=== PATIENT | male | born 1995 ===

== ENCOUNTER 2020-05-17 13:42 | Emergency (ER) | payer SELFPAY ==
[2020-05-17 13:50] VITALS: BP 130/87
--- NOTE | 2020-05-17 14:20 | ER Document Report ---
ED Medical Screen (RME) - General Chief Complaint: Abdominal Pain Stated Complaint: RIGHT SIDE/ABDOMINAL PAIN Time Seen by Provider: 05/17/20 14:16 Mode of Arrival: Ambulatory Information source: Patient Notes: 25-year-old male presented ED for complaint of right upper abdominal pain. He states he has had hep C since he was 16 but is never gotten treatment. He states he has been in and out of halfway since he was 17. He has never had treatment for his hep C. He states the pain has been getting worse and worse so he is come to the emergency room. He states he smokes a pack a day drinks maybe once every month or 2 [address]. He states at one point he was prescribed Percocet but now he gets them off the street. He denies any nausea vomiting or diarrhea. He denies any fevers. He states the pain is pretty severe. We will get blood urine and ultrasound and he will be seen by another provider. I have greeted and performed a rapid initial assessment of this patient. A comprehensive ED assessment and evaluation of the patient, analysis of test results and completion of medical decision making process will be conducted by an additional ED providers. Physical Exam - Vital signs Vitals: Temp Pulse Resp BP Pulse Ox 98.8 F 86 16 130/87 H 100 05/17/20 13:46 05/17/20 13:46 05/17/20 13:46 05/17/20 13:46 05/17/20 13:46 Course - Vital Signs Vital signs: Temp Pulse Resp BP Pulse Ox 98.8 F 86 16 130/87 H 100 05/17/20 13:46 05/17/20 13:46 05/17/20 13:46 05/17/20 13:46 05/17/20 13:46
--- NOTE | 2020-05-17 15:11 | RADIOLOGY REPORT (SQ) ---
EXAM DESCRIPTION: U/S ABDOMEN LIMITED W/O DOP IMAGES COMPLETED DATE/TIME: 05/17/2020 2:54 pm REASON FOR STUDY: Upper quadrant abdominal pain history of hep C COMPARISON: None. TECHNIQUE: Dynamic and static grayscale images acquired of the abdomen and recorded on PACS. Additio nal selected color Doppler and spectral images recorded. LIMITATIONS: None. FINDINGS: PANCREAS: No masses. Visualized pancreatic duct normal caliber. LIVER: No masses. Echotexture normal. LIVER VASCULATURE: Normal directional flow of the main portal vein and hepatic veins. GALLBLADDER: No stones. Normal wall thickness. No pericholecystic fluid. ULTRASOUND-DETECTED ORDOÑEZ'S SIGN: Negative. INTRAHEPATIC DUCTS AND COMMON DUCT: CBD and intrahepatic ducts normal caliber. No filling defects. AORTA: No aneurysm. RIGHT KIDNEY: Normal size. Normal echogenicity. No solid or suspicious masses. No hydronephrosis. No calcifications. PERITONEAL AND RIGHT PLEURAL SPACE: No ascites or effusions. OTHER: No other significant findings. IMPRESSION: NORMAL RIGHT UPPER QUADRANT ULTRASOUND. TECHNICAL DOCUMENTATION: JOB ID: [id number] 2010 [employer]- All Rights Reserved Reading location - IP/workstation name: [email or web address]
[2020-05-17 15:50] LABS: ABSOLUTE EOSINOPHILS # (AUTO) 0.1 10^3/uL (0.0-0.6); ABSOLUTE LYMPHOCYTES (AUTO) 1.1 10^3/uL (0.5-4.7); ABSOLUTE MONOCYTES (AUTO) 0.5 10^3/uL (0.1-1.4); ABSOLUTE NEUT (AUTO) 3.7 10^3/uL (1.7-8.2); BASOPHILS % (AUTO) 0.5 % (0-2); EOSINOPHILS % (AUTO) 1.1 % (0-6); HEMATOCRIT 40.8 % (37.9-51.0); HEMOGLOBIN 14.1 g/dL (13.5-17.0); LYMPHOCYTES % (AUTO) 20.3 % (13-45); MEAN CORPUSCULAR HGB CONC 34.6 g/dL (32.0-36.0); MEAN CORPUSCULAR VOLUME 84 fl (80-97); MONOCYTES % (AUTO) 8.9 % (3-13); PLATELET COUNT 218 10^3/uL (150-450); RED BLOOD COUNT 4.88 10^6/uL (4.35-5.55); RED CELL DISTRIBUTION WIDTH 13.4 % (11.5-14.0); SEGMENTED NEUTROPHILS % (AUTO) 69.2 % (42-78); TOTAL CELLS COUNTED % (AUTO) 100 %; WHITE BLOOD COUNT 5.4 10^3/uL (4.0-10.5)
[2020-05-17 16:07] LABS: ALBUMIN 4.6 g/dL (3.5-5.0); ALKALINE PHOSPHATASE 93 U/L (38-126); ANION GAP 9 (5-19); ASPARTATE AMINO TRANSFERASE 35 U/L (17-59); BILIRUBIN,TOTAL 0.5 mg/dL (0.2-1.3); BLOOD UREA NITROGEN 10 mg/dL (7-20); CARBON DIOXIDE 31 mmol/L (22-30); CHLORIDE 101 mmol/L (98-107); GLUCOSE 87 mg/dL (75-110); POTASSIUM 4.1 mmol/L (3.6-5.0); TOTAL PROTEIN 7.7 g/dL (6.3-8.2)
== END 2020-05-17 15:55 | disposition left against medical advice (07) ==
LOC: ER 13:42
DX: R10.9 Unspecified abdominal pain (principal); B19.20 Unspecified viral hepatitis C without hepatic coma; F17.210 Nicotine dependence, cigarettes, uncomplicated
CPT/HCPCS: 36415; 76705; 80053; 83690; 85025; 99281

== ENCOUNTER 2020-05-18 12:45 | Emergency (ER) | payer SELFPAY ==
[2020-05-18] MEDS ORDERED: NORMAL SALINE 1000 ML 1,000 ML IV ONE ×2 (12:58→15:16)
--- NOTE | 2020-05-18 13:00 | ER Document Report ---
ED Medical Screen (RME) - General Chief Complaint: Abdominal Pain Stated Complaint: ABDOMINAL PAIN Time Seen by Provider: 05/18/20 12:57 Notes: HPI: 25-year-old male presenting for months of abdominal pain worse in the last several weeks. States it normally is in the right upper quadrant but also now in the left upper quadrant. Having difficulty with bowel movements. Patient does admit to buying Percocet off the street to help with the pain because he does not have insurance to see anyone. No fevers. Denies amphetamine use. Was here yesterday but states he had to leave to get his son prior to being evaluated in the back ER PHYSICAL EXAMINATION: Patient is tachycardic with a heart rate of 137. Mild generalized upper abdominal pain on palpation. Ultrasound of the right upper quadrant, CBC and CMP done yesterday were both negative I have greeted and performed a rapid initial assessment of this patient. A comprehensive ED assessment and evaluation of the patient, analysis of test results and completion of medical decision making process will be conducted by an additional ED providers. Physical Exam - Vital signs Vitals: Temp Pulse Resp BP Pulse Ox 97.9 F 120 H 16 137/79 H 99 05/18/20 12:53 05/18/20 12:53 05/18/20 12:53 05/18/20 12:53 05/18/20 12:53 Course - Vital Signs Vital signs: Temp Pulse Resp BP Pulse Ox 97.9 F 120 H 16 137/79 H 99 05/18/20 12:53 05/18/20 12:53 05/18/20 12:53 05/18/20 12:53 05/18/20 12:53
[2020-05-18 13:56] LABS: ABSOLUTE EOSINOPHILS # (AUTO) 0.1 10^3/uL (0.0-0.6); ABSOLUTE LYMPHOCYTES (AUTO) 1.7 10^3/uL (0.5-4.7); ABSOLUTE MONOCYTES (AUTO) 0.6 10^3/uL (0.1-1.4); ABSOLUTE NEUT (AUTO) 3.1 10^3/uL (1.7-8.2); BASOPHILS % (AUTO) 0.5 % (0-2); EOSINOPHILS % (AUTO) 1.6 % (0-6); HEMATOCRIT 40.4 % (37.9-51.0); HEMOGLOBIN 13.9 g/dL (13.5-17.0); LYMPHOCYTES % (AUTO) 30.6 % (13-45); MEAN CORPUSCULAR HGB CONC 34.4 g/dL (32.0-36.0); MEAN CORPUSCULAR VOLUME 84 fl (80-97); MONOCYTES % (AUTO) 10.6 % (3-13); PLATELET COUNT 213 10^3/uL (150-450); RED CELL DISTRIBUTION WIDTH 13.5 % (11.5-14.0); SEGMENTED NEUTROPHILS % (AUTO) 56.7 % (42-78); TOTAL CELLS COUNTED % (AUTO) 100 %; WHITE BLOOD COUNT 5.4 10^3/uL (4.0-10.5)
[2020-05-18 14:18] LABS: ALBUMIN 4.5 g/dL (3.5-5.0); ALKALINE PHOSPHATASE 80 U/L (38-126); ANION GAP 9 (5-19); ASPARTATE AMINO TRANSFERASE 31 U/L (17-59); BILIRUBIN,TOTAL 0.6 mg/dL (0.2-1.3); BLOOD UREA NITROGEN 10 mg/dL (7-20); CARBON DIOXIDE 32 mmol/L (22-30); CHLORIDE 100 mmol/L (98-107); POTASSIUM 4.4 mmol/L (3.6-5.0); TOTAL PROTEIN 7.4 g/dL (6.3-8.2)
[2020-05-18 14:20] LABS: GLUCOSE 69 mg/dL (75-110)
--- NOTE | 2020-05-18 15:14 | ER Document Report ---
ED General - General Chief Complaint: Abdominal Pain Stated Complaint: ABDOMINAL PAIN Time Seen by Provider: 05/18/20 12:57 Primary Care Provider: MICHAEL LAGOS [Primary Care Provider] - Follow up as needed Mode of Arrival: Ambulatory Information source: Patient Notes: Patient is a 25-year-old male coming in today with right upper quadrant abdominal pain. States the symptoms have been present for months. States he was diagnosed with hepatitis C when he was 16 years old. He has been in and out of care home and skilled nursing for quite a bit of that time ever since. States that he has been out of care home for the past 3 years. He is complaining and worried about the pain in his right upper abdomen that is worse when his girlfriend lays down next to him or puts any weight on the area. He has been self treating with Percocet purchased on the street. Complaining of constipation. Denies fever and chills. Denies chest pain. Denies shortness of breath. No abdominal edema or peripheral edema - Related Data Allergies/Adverse Reactions: No Known Allergies Allergy (Unverified 05/18/20 15:06) Past Medical History - Social History Smoking Status: Never Smoker Chew tobacco use (# tins/day): No Frequency of alcohol use: None Drug Abuse: None Family History: Other - Dad has history of skin cancer Patient has homicidal ideation: No Past Surgical History: Reports: Hx Orthopedic Surgery - leg Review of Systems - Review of Systems Notes: Constitutional: No fevers. No chills. EENT: No eye redness. No eye pain. No ear pain. No sore throat. Cardiovascular: No chest pain. No palpitations. Respiratory: No cough. No shortness of breath. No respiratory distress. Gastrointestinal: +abdominal pain. No nausea, vomiting, or diarrhea. Positive for constipation Genitourinary: Atraumatic. No lesions. No pain. No discharge. Musculoskeletal: Atraumatic. No swelling. No deformities. Skin: No rash or lesions. Lymphatic: No swollen lymph nodes. Neurologic: No headache. No syncope. Psychiatric: No suicidal or homicidal ideation. Physical Exam - Vital signs Vitals: Temp Pulse Resp BP Pulse Ox 97.9 F 120 H 16 137/79 H 99 05/18/20 12:53 05/18/20 12:53 05/18/20 12:53 05/18/20 12:53 05/18/20 12:53 - Notes Notes: General: Well-developed, well-nourished. In no acute distress. Non-toxic appearing. Cardiac: Well-perfused. Regular rate and rhythm. No murmurs, rubs, or gallops. Pulmonary: No respiratory distress. No cyanosis. Bilateral lung fiels are clear to auscultation. Abdominal: Minimal right upper quadrant tenderness to palpation. Abdomen is nondistended. No masses appreciated. No hepatomegaly appreciated. No splenomegaly appreciated. HEENT: Head is atraumatic. Conjunctivae not reddened. No tearing. PERRL. EOMI. Orbits atraumatic. No periorbital swelling or erythema. Oropharynx is without erythema, swelling, or exudates. Large cavity noted to the right lower premolar tooth Neck: Supple. No adenopathy. No meningismus. Dermatologic: Warm with good turgor. No rash. Atraumatic. Chest: Atraumatic. No chest wall tenderness to palpation. Musculoskeletal: Moves all extremities well. No range of motion deficits. no muscular or joint tenderness. No paraspinal muscle tenderness. no midline spinal tenderness or step-off. Genitourinary: Examination deferred Neurologic: No gross neurologic deficits. Psychiatric: Normal mood. Course - Re-evaluation Re-evalutation: 05/18/20 15:12 Interestingly enough the patient was here yesterday but eloped. His labs were totally normal. His right upper quadrant ultrasound was totally normal. It seems that the patient has been doing quite a bit of Internet research on finds and symptoms of liver disease and has gotten himself upset with the possibility of his liver failing. His exam is quite normal. He is a healthy looking young man. Unfortunately he is using narcotics that he obtained from illegal sources. We will proceed forward with his CT scan to make sure there is absolutely no abdominal pathology. As an aside, patient is also having right lower jaw pain. He identifies a tooth in the right lower jaw that has a large cavity. 05/18/20 17:04 Patient refused the CAT scan of his abdomen and pelvis. He continues to be concerned about multiple small little red macular lesions that are found in various parts of his body absolutely certain that they are skin cancer because he investigated them on the Internet. He is worried that potentially he has some sort of skin cancer that has gone to his brain because he is having right- sided pain above his right ear. He is worried that perhaps it is gone to his lungs. 05/18/20 17:06 I reassured the patient that every small skin lesion that he demonstrated to me did not appear to be concerning for cancer. I did indicate that screening for skin cancer is not something that we do in the emergency department and we would have to refer him to an outpatient clinic for biopsy if needed. I did reassure him that we would scan his head and get a chest x-ray to confirm that there was no sign of any cancerous growth in either of these places. I reassured him that nothing about his presentation concerns me for cancer. 05/18/20 18:26 X-ray is negative. CT is negative. Will discharge - Vital Signs Vital signs: Temp Pulse Resp BP Pulse Ox 97.9 F 120 H 16 137/79 H 99 05/18/20 12:53 05/18/20 12:53 05/18/20 12:53 05/18/20 12:53 05/18/20 12:53 - Laboratory Result Diagrams: 05/18/20 13:37 05/18/20 13:37 Laboratory results interpreted by me: 05/18/20 13:37 Carbon Dioxide 32 H Glucose 69 L Discharge - Discharge Clinical Impression: Chest wall pain, Skin lesion, Tobacco abuse Abdominal pain Qualifiers: Abdominal location: generalized Qualified Code(s): R10.84 - Generalized abdominal pain Condition: Good Disposition: HOME, SELF-CARE Instructions: Abdominal Pain ([facility]), Chest Wall Pain ([facility]) Additional Instructions: [facility] for further evaluation of your skin lesions. Forms: Smoking Cessation Education
--- NOTE | 2020-05-18 18:13 | RADIOLOGY REPORT (SQ) ---
EXAM DESCRIPTION: CHEST 2 VIEWS IMAGES COMPLETED DATE/TIME: 05/18/2020 5:44 pm REASON FOR STUDY: PAIN IN RIBS/LUNGS COMPARISON: None. EXAM PARAMETERS: NUMBER OF VIEWS: two views TECHNIQUE: Digital Frontal and Lateral radiographic views of the chest acquired. RADIATION DOSE: NA LIMITATIONS: none FINDINGS: LUNGS AND PLEURA: No opacities, masses or pneumothorax. No pleural effusion. MEDIASTINUM AND HILAR STRUCTURES: No masses or contour abnormalities. HEART AND VASCULAR STRUCTURES: Heart normal size. No evidence for failure. BONES: No acute findings. HARDWARE: None in the chest. OTHER: No other significant finding. IMPRESSION: NO ACUTE RADIOGRAPHIC FINDING IN THE CHEST. TECHNICAL DOCUMENTATION: JOB ID: [id number] 2010 [employer]- All Rights Reserved Reading location - IP/workstation name: [email or web address]
--- NOTE | 2020-05-18 18:14 | RADIOLOGY REPORT (SQ) ---
EXAM DESCRIPTION: CT HEAD WITHOUT IMAGES COMPLETED DATE/TIME: 05/18/2020 5:51 pm REASON FOR STUDY: CEPHALGIA COMPARISON: None. TECHNIQUE: Axial images acquired through the brain without intravenous contrast. Images reviewed wi th bone, brain and subdural windows. Additional sagittal and coronal reconstructions were generated. Images stored on PACS. All CT scanners at this facility use dose modulation, iterative reconstruction, and/or weight based d osing when appropriate to reduce radiation dose to as low as reasonably achievable (ALARA). [facility]: Dose Right [facility]: CareDose [facility]: Dose Right [facility]: Teradose 4D [facility]: Smart KIDOZ RADIATION DOSE: CT Rad equipment meets quality standard of care and radiation dose reduction techniq ues were employed. CTDIvol: 53.2 mGy. DLP: 937 mGy-cm. mGy. LIMITATIONS: None. FINDINGS: VENTRICLES: Normal size and contour. CEREBRUM: No masses. No hemorrhage. No midline shift. No evidence for acute infarction. Normal gra y/white matter differentiation. No areas of low density in the white matter. CEREBELLUM: No masses. No hemorrhage. No alteration of density. No evidence for acute infarction. EXTRAAXIAL SPACES: No fluid collections. No masses. ORBITS AND GLOBE: No intra- or extraconal masses. Normal contour of globe without masses. CALVARIUM: No fracture. PARANASAL SINUSES: No fluid or mucosal thickening. SOFT TISSUES: No mass or hematoma. OTHER: No other significant finding. IMPRESSION: NORMAL BRAIN CT WITHOUT CONTRAST. EVIDENCE OF ACUTE STROKE: NO. COMMENT: Quality ID # [id number]: Final reports with documentation of one or more dose reduction techniques (e.g., Automated exposure control, adjustment of the mA and/or kV according to patient size, use of iterative reconstruction technique) TECHNICAL DOCUMENTATION: JOB ID: [id number] 2010 [employer]- All Rights Reserved Reading location - IP/workstation name: [email or web address]
[2020-05-18 18:38] VITALS: BP 148/83
--- NOTE | 2020-05-19 18:13 | EKG REPORT ---
SEVERITY:- BORDERLINE ECG - SINUS TACHYCARDIA : Confirmed by: Bruce Arshad MD 19-May-2020 18:11:45
== END 2020-05-18 18:39 | disposition home or self-care (01) ==
LOC: ER 12:45
DX: L98.9 Disorder of the skin and subcutaneous tissue, unspecified (principal); R07.89 Other chest pain; R10.84 Generalized abdominal pain; R68.84 Jaw pain; R51.9 Headache, unspecified
CPT/HCPCS: 93005; 99285; 96360; 96361; 36415; 83690; 85025; 80053; 71046; 70450; 93010; J7030